=== PATIENT | female | born 1955 | race Caucasian/White ===

== ENCOUNTER → 2016-09-10 | Outpatient (CLI) | payer BC ==
[2016-09-10 11:25] LABS: HEMATOCRIT 38.3 % (36.0-47.0); HEMOGLOBIN 12.9 g/dL (12.0-15.5); HGB HCT DIFFERENCE 0.4; MEAN CORPUSCULAR HEMOGLOBIN 29.4 pg (27.0-33.4); MEAN CORPUSCULAR HGB CONC 33.8 g/dL (32.0-36.0); MEAN CORPUSCULAR VOLUME 87 fl (80-97); RED CELL DISTRIBUTION WIDTH 12.9 % (11.5-14.0); WHITE BLOOD COUNT 3.7 10^3/uL (4.0-10.5)
[2016-09-10 11:52] LABS: ALANINE AMINOTRANSFERASE 33 U/L (9-52); ALBUMIN 4.5 g/dL (3.5-5.0); ALKALINE PHOSPHATASE 79 U/L (38-126); ANION GAP 9 (5-19); ASPARTATE AMINO TRANSFERASE 28 U/L (14-36); BILIRUBIN,TOTAL 0.7 mg/dL (0.2-1.3); BLOOD UREA NITROGEN 16 mg/dL (7-20); CARBON DIOXIDE 33 mmol/L (22-30); CHLORIDE 101 mmol/L (98-107); CHOLESTEROL 214.19 mg/dL (0-200); CREATININE RESULT 0.75 mg/dL (0.52-1.25); Direct HDL 49 mg/dL (>40); GLUCOSE 90 mg/dL (75-110); POTASSIUM 4.4 mmol/L (3.6-5.0); SODIUM 142.8 mmol/L (137-145); TOTAL PROTEIN 7.1 g/dL (6.3-8.2); TRIGLYCERIDES 70 mg/dL (<150)
[2016-09-10 12:05] LABS: DIRECT LDL 150 mg/dL (<100)
[2016-09-11 06:38] LABS: HEPATITIS C VIRUS AB <0.1 s/co ratio (0.0-0.9)
[2016-09-11 10:49] LABS: THYROID PEROXIDASE (TPO) AB <6 IU/mL (0-34); VITAMIN D 25-HYDROXY 56.5 ng/mL (30.0-100.0)
== END ==
LOC: OD 10:26
PROVIDERS: ATTEND Obstetrics & Gynecology Gynecology
DX: E66.9 Obesity, unspecified (principal); E78.5 Hyperlipidemia, unspecified; E03.9 Hypothyroidism, unspecified; Z13.1 Encounter for screening for diabetes mellitus; Z11.59 Encounter for screening for other viral diseases; E55.9 Vitamin D deficiency, unspecified
CPT/HCPCS: 36415; 80053; 80061; 82306; 83036; 84436; 84443; 84479; 85027; 86376; 86803; 86804

== ENCOUNTER → 2017-01-18 | Outpatient (CLI) | payer BC ==
--- NOTE | 2017-01-18 12:20 | RADIOLOGY REPORT (SQ) ---
EXAM DESCRIPTION: CT BONE LENGTH COMPLETED DATE/TIME: 01/18/2017 9:11 am REASON FOR STUDY: CONGENITAL SHORTENING OF UNSPECIFIED LOWER LIMB Q72.819 CONGENITAL SHORTENING OF UNSPECIFIED LOWER LIMB COMPARISON: None. TECHNIQUE: CT scanogram of the bilateral lower extremities is performed including pelvis to ankles. Measurements of femur, tibia, and entire lower extremities performed by the radiologist and saved to PACS. All CT scanners at this facility use dose modulation, iterative reconstruction, and/or weight based d osing when appropriate to reduce radiation dose to as low as reasonably achievable (ALARA). [facility]: Dose Right [facility]: CareDose [facility]: Dose Right [facility]: Teradose 4D [facility]: [employer] RADIATION DOSE: 0.01 mGy. LIMITATIONS: None. FINDINGS: RIGHT: FEMUR: 43.6 cm. TIBIA: 34 cm. TOTAL RIGHT LOWER EXTREMITY LENGTH: 78.2 cm. LEFT: FEMUR: 43.6 cm. TIBIA: 34 cm. TOTAL LEFT LOWER EXTREMITY LENGTH: 78.2 cm. IMPRESSION: LEG LENGTH MEASUREMENTS DETAILED ABOVE. TECHNICAL DOCUMENTATION: JOB ID: [id number] Quality ID # [id number]: Final reports with documentation of one or more dose reduction techniques (e.g., Au tomated exposure control, adjustment of the mA and/or kV according to patient size, use of iterative reconstruction technique) 2010 [employer]- All Rights Reserved
== END ==
LOC: RAD 08:49
PROVIDERS: ATTEND Podiatrist Foot & Ankle Surgery
DX: Q72.819 Congenital shortening of unspecified lower limb (principal)
CPT/HCPCS: 77073

== ENCOUNTER → 2017-05-10 | Outpatient (CLI) | payer BC ==
--- NOTE | 2017-05-10 12:42 | RADIOLOGY REPORT (SQ) ---
EXAM DESCRIPTION: FOOT LEFT COMPLETE COMPLETED DATE/TIME: 05/10/2017 11:56 am REASON FOR STUDY: PAIN IN L FOOT M79.672 PAIN IN LEFT FOOT COMPARISON: None. NUMBER OF VIEWS: Three views. TECHNIQUE: AP, lateral and oblique radiographic images acquired of the left foot. LIMITATIONS: None. FINDINGS: MINERALIZATION: Osteoporotic BONES: [place]'s infraction or avascular necrosis, 3rd metatarsal head with irregularity of the articular surface. No acute fracture. No healing or chronic nonunited fracture is identified. Accessory navicular bone, an anatomic variant. Small plantar calcaneal spur. JOINTS: No effusions. SOFT TISSUES: No soft tissue swelling. No foreign body. OTHER: No other significant finding. 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
== END ==
LOC: RAD 11:41
PROVIDERS: ATTEND Chiropractor
DX: M79.672 Pain in left foot (principal); M87.875 Other osteonecrosis, left foot

== ENCOUNTER → 2017-05-26 | Outpatient (CLI) | payer BC ==
--- NOTE | 2017-05-26 17:12 | RADIOLOGY REPORT (SQ) ---
EXAM DESCRIPTION: CERV SP 4 OR 5 VIEWS COMPLETED DATE/TIME: 05/26/2017 4:39 pm REASON FOR STUDY: LOW BACK PAIN WITH RIGHT SCIATICA (M54.41) M54.41 LUMBAGO WITH SCIATICA, RIGHT SI DE COMPARISON: None. NUMBER OF VIEWS: Five views. TECHNIQUE: AP, lateral, obliques and odontoid radiographic images acquired of the cervical spine. LIMITATIONS: None. FINDINGS: MINERALIZATION: Normal. ALIGNMENT: Anatomic. VERTEBRAE: Vertebral bodies of normal height. DISCS: There is decrease in the C4-C5, C5-C6, and C6-C7 disc space heights with associated anterior o steophytic lipping. FORAMINA: No osteophytes or foraminal narrowing. LATERAL AND POSTERIOR ELEMENTS: Facets, lateral masses and spinous processes without significant find ings. HARDWARE: None in the spine. SOFT TISSUES: No masses or calcifications. Lung apices clear. OTHER: No other significant finding. IMPRESSION: Degenerative changes as noted above TECHNICAL DOCUMENTATION: JOB ID: [id number]- All Rights Reserved
--- NOTE | 2017-05-26 17:14 | RADIOLOGY REPORT (SQ) ---
EXAM DESCRIPTION: L SPINE WHOLE COMPLETED DATE/TIME: 05/26/2017 4:39 pm REASON FOR STUDY: LOW BACK PAIN WITH RIGHT SCIATICA (M54.41) M54.41 LUMBAGO WITH SCIATICA, RIGHT SI DE COMPARISON: None. NUMBER OF VIEWS: Five views including obliques. TECHNIQUE: AP, lateral, oblique, and sacral radiographic images acquired of the lumbar spine. LIMITATIONS: None. FINDINGS: MINERALIZATION: Normal. SEGMENTATION: Normal. No transitional anatomy. ALIGNMENT: Normal. VERTEBRAE: Maintained height. No fracture or worrisome bone lesion. DISCS: Preserved height. No significant osteophytes or end plate irregularity. POSTERIOR ELEMENTS: Pedicles and facets are intact. No pars defect or posterior arch defects. HARDWARE: None in the spine. PARASPINAL SOFT TISSUES: Normal. PELVIS: Intact as visualized. No fractures or worrisome bone lesions. SI joints intact. OTHER: No other significant finding. IMPRESSION: No significant vertebral compression or disc space reduction is seen. Other findings as noted above TECHNICAL DOCUMENTATION: JOB ID: [id number] [employer]- All Rights Reserved
== END ==
LOC: RAD 15:47
PROVIDERS: ATTEND Chiropractor
DX: M54.2 Cervicalgia (principal); M54.41 Lumbago with sciatica, right side
CPT/HCPCS: 72050; 72110

== ENCOUNTER → 2018-01-12 | Outpatient (CLI) | payer BC ==
[2018-01-12 15:04] LABS: ABSOLUTE BASOPHILS # (AUTO) 0.1 10^3/uL (0.0-0.2); ABSOLUTE EOSINOPHILS # (AUTO) 0.1 10^3/uL (0.0-0.6); ABSOLUTE LYMPHOCYTES (AUTO) 1.8 10^3/uL (0.5-4.7); ABSOLUTE MONOCYTES (AUTO) 0.4 10^3/uL (0.1-1.4); ABSOLUTE NEUT (AUTO) 2.9 10^3/uL (1.7-8.2); BASOPHILS % (AUTO) 1.1 % (0-2); EOSINOPHILS % (AUTO) 2.8 % (0-6); HEMATOCRIT 37.8 % (36.0-47.0); HEMOGLOBIN 12.8 g/dL (12.0-15.5); LYMPHOCYTES % (AUTO) 34.8 % (13-45); MEAN CORPUSCULAR HEMOGLOBIN 29.9 pg (27.0-33.4); MEAN CORPUSCULAR HGB CONC 33.9 g/dL (32.0-36.0); MEAN CORPUSCULAR VOLUME 88 fl (80-97); MONOCYTES % (AUTO) 6.8 % (3-13); PLATELET COUNT 292 10^3/uL (150-450); RED BLOOD COUNT 4.29 10^6/uL (3.72-5.28); RED CELL DISTRIBUTION WIDTH 12.5 % (11.5-14.0); SEGMENTED NEUTROPHILS % (AUTO) 54.5 % (42-78); TOTAL CELLS COUNTED % (AUTO) 100 %; WHITE BLOOD COUNT 5.3 10^3/uL (4.0-10.5)
[2018-01-12 15:27] LABS: ALANINE AMINOTRANSFERASE 35 U/L (9-52); ALBUMIN 4.5 g/dL (3.5-5.0); ALKALINE PHOSPHATASE 85 U/L (38-126); ANION GAP 13 (5-19); ASPARTATE AMINO TRANSFERASE 36 U/L (14-36); BILIRUBIN,DIRECT 0.2 mg/dL (0.0-0.4); BILIRUBIN,TOTAL 0.6 mg/dL (0.2-1.3); BLOOD UREA NITROGEN 14 mg/dL (7-20); CARBON DIOXIDE 29 mmol/L (22-30); CHLORIDE 103 mmol/L (98-107); GLUCOSE 81 mg/dL (75-110); POTASSIUM 4.2 mmol/L (3.6-5.0); SODIUM 144.7 mmol/L (137-145); TOTAL PROTEIN 7.3 g/dL (6.3-8.2)
[2018-01-12 15:55] LABS: FREE T3 3.54 pg/mL (2.77-5.27); FREE T4 (FREE THYROXINE) 0.95 ng/dL (0.78-2.19)
[2018-01-12 16:08] LABS: THYROID STIMULATING HORMONE 2.19 uIU/mL (0.47-4.68)
[2018-01-12 16:22] LABS: C-REACTIVE PROTEIN < 5.0 mg/L (<10.0)
[2018-01-13 08:41] LABS: THYROID PEROXIDASE (TPO) AB 14 IU/mL (0-34)
[2018-01-13 08:49] LABS: THYROGLOBULIN AB <1.0 IU/mL (0.0-0.9)
[2018-01-13 11:40] LABS: CHOLESTEROL TOTAL 263 mg/dL (100-199); HDL-C 56 mg/dL (>39); HDL-P (TOTAL) 37.1 umol/L (>=30.5); SMALL LDL-P 992 nmol/L (<=527); TRIGLYCERIDES 89 mg/dL (0-149)
[2018-01-13 13:58] LABS: MAGNESIUM RBC 6.2 mg/dL (4.2-6.8)
[2018-01-13 13:59] LABS: LDL SIZE 21.2 nm (>20.5); LDL-C 189 mg/dL (0-99); LDL-P 2460 nmol/L (<1000); LP-IR SCORE 45 (<=45); SELENIUM WHOLE BLOOD 209 ug/L (100-340)
[2018-01-14 10:37] LABS: M001-IGE PENICILLIUM CHRYSOGEN <0.10 kU/L (Class 0); M002-IGE CLADOSPORIUM HERBARUM <0.10 kU/L (Class 0); M003-IGE ASPERGILLUS FUMIGATUS <0.10 kU/L (Class 0); M004-IGE MUCOR RACEMOSUS <0.10 kU/L (Class 0); M005-IGE CANDIDA ALBICANS <0.10 kU/L (Class 0); M006-IGE ALTERNARIA ALTERNATA <0.10 kU/L (Class 0); M009-IGE FUSARIUM PROLIFERATUM <0.10 kU/L (Class 0); M012-IGE AUREOBASIDI PULLULANS <0.10 kU/L (Class 0); M013-IGE PHOMA BETAE <0.10 kU/L (Class 0); M014-IGE EPICOCCUM PURPURASCEN <0.10 kU/L (Class 0)
[2018-01-14 14:10] LABS: M010-IGE STEMPHYLIUM HERBARUM <0.10 kU/L (Class 0); VITAMIN B1 (THIAMINE) 114.3 nmol/L (66.5-200.0)
[2018-01-15 08:07] LABS: VITAMIN B6 10.6 ug/L (2.0-32.8)
[2018-01-15 12:49] LABS: VITAMIN B2 WHOLE BLOOD 170 ug/L (137-370)
[2018-01-15 16:46] LABS: VITAMIN A 50.9 ug/dL (36.4-108.0)
[2018-01-17 12:57] LABS: REVERSE T3 20.8 ng/dL (9.2-24.1)
== END ==
LOC: OD 12:33
PROVIDERS: ATTEND Student in an Organized Health Care Education/Training Program
DX: R14.0 Abdominal distension (gaseous) (principal); R19.7 Diarrhea, unspecified; R53.83 Other fatigue
CPT/HCPCS: 36415; 80053; 80061; 81291; 82180; 82306; 82607; 83090; 83735; 83918; 84207; 84252; 84255; 84425; 84439; 84443; 84481; 84482; 84590; 84591; 84597; 85025; 86003; 86140; 86340; 86376

== ENCOUNTER → 2018-11-13 | Outpatient (CLI) | payer BC ==
[2018-11-13 13:05] LABS: ABSOLUTE BASOPHILS # (AUTO) 0.1 10^3/uL (0.0-0.2); ABSOLUTE EOSINOPHILS # (AUTO) 0.2 10^3/uL (0.0-0.6); ABSOLUTE LYMPHOCYTES (AUTO) 1.6 10^3/uL (0.5-4.7); ABSOLUTE MONOCYTES (AUTO) 0.4 10^3/uL (0.1-1.4); ABSOLUTE NEUT (AUTO) 2.5 10^3/uL (1.7-8.2); BASOPHILS % (AUTO) 1.2 % (0-2); EOSINOPHILS % (AUTO) 3.3 % (0-6); HEMATOCRIT 35.7 % (36.0-47.0); HEMOGLOBIN 12.2 g/dL (12.0-15.5); LYMPHOCYTES % (AUTO) 33.8 % (13-45); MEAN CORPUSCULAR HEMOGLOBIN 30.2 pg (27.0-33.4); MEAN CORPUSCULAR VOLUME 89 fl (80-97); MONOCYTES % (AUTO) 8.1 % (3-13); PLATELET COUNT 223 10^3/uL (150-450); RED BLOOD COUNT 4.02 10^6/uL (3.72-5.28); SEGMENTED NEUTROPHILS % (AUTO) 53.6 % (42-78); TOTAL CELLS COUNTED % (AUTO) 100 %; WHITE BLOOD COUNT 4.6 10^3/uL (4.0-10.5)
[2018-11-13 13:22] LABS: ALANINE AMINOTRANSFERASE 26 U/L (9-52); ALBUMIN 3.9 g/dL (3.5-5.0); ALKALINE PHOSPHATASE 70 U/L (38-126); ASPARTATE AMINO TRANSFERASE 29 U/L (14-36); BILIRUBIN,DIRECT 0.1 mg/dL (0.0-0.4); BILIRUBIN,TOTAL 0.5 mg/dL (0.2-1.3); BLOOD UREA NITROGEN 17 mg/dL (7-20); CALCIUM 9.8 mg/dL (8.4-10.2); CHOLESTEROL 207.24 mg/dL (0-200); GLUCOSE 80 mg/dL (75-110); POTASSIUM 4.2 mmol/L (3.6-5.0); TOTAL PROTEIN 6.6 g/dL (6.3-8.2); TRIGLYCERIDES 85 mg/dL (<150)
[2018-11-13 13:26] LABS: CARBON DIOXIDE 31 mmol/L (22-30); CHLORIDE 106 mmol/L (98-107); SODIUM 140.4 mmol/L (137-145)
[2018-11-13 13:32] LABS: DIRECT LDL 125 mg/dL (<100)
[2018-11-13 13:34] LABS: ANION GAP 3 (5-19)
== END ==
LOC: OD 10:52
PROVIDERS: ATTEND Student in an Organized Health Care Education/Training Program
DX: R14.0 Abdominal distension (gaseous) (principal); E78.2 Mixed hyperlipidemia
CPT/HCPCS: 36415; 80053; 80061; 85025

== ENCOUNTER → 2019-12-27 | Outpatient (CLI) | payer BC ==
[2019-12-27 10:00] LABS: ALBUMIN 4.2 g/dL (3.5-5.0); ALKALINE PHOSPHATASE 83 U/L (38-126); ASPARTATE AMINO TRANSFERASE 53 U/L (14-36); BILIRUBIN,TOTAL 0.3 mg/dL (0.2-1.3); CHOLESTEROL 254.09 mg/dL (0-200); TOTAL PROTEIN 6.6 g/dL (6.3-8.2); TRIGLYCERIDES 76 mg/dL (<150)
[2019-12-27 10:11] LABS: DIRECT LDL 191 mg/dL (<100)
== END ==
LOC: OD 08:56
PROVIDERS: ATTEND Family Medicine
DX: E78.5 Hyperlipidemia, unspecified (principal)
CPT/HCPCS: 36415; 80061; 80076

== ENCOUNTER → 2020-01-09 | Outpatient (CLI) | payer BC ==
--- NOTE | 2020-01-09 09:48 | RADIOLOGY REPORT (SQ) ---
EXAM DESCRIPTION: U/S ABDOMEN LIMITED W/O DOP IMAGES COMPLETED DATE/TIME: 01/09/2020 9:02 am REASON FOR STUDY: NONSPEC ELEV OF LEVELS OF TRANSAMNS LACTIC ACID DEHYDRGNSE R74.0 NONSPEC ELEV O F LEVELS OF TRANSAMNS LACTIC ACID DEHY COMPARISON: None. TECHNIQUE: Dynamic and static grayscale images acquired of the abdomen and recorded on PACS. Additio nal selected color Doppler and spectral images recorded. LIMITATIONS: None. FINDINGS: PANCREAS: The visualized portions of the pancreas appear normal. LIVER: Normal contour and echotexture. LIVER VASCULATURE: Hepatopetal directional flow in the portal veins. GALLBLADDER: The gallbladder wall measures 1.6 mm in thickness. There is no cholelithiasis, sludge o r pericholecystic fluid. ULTRASOUND-DETECTED LION'S SIGN: Negative. INTRAHEPATIC DUCTS AND COMMON DUCT: The common bile duct measures 4.2 mm in diameter. There is no di latation of the intrahepatic bile ducts. INFERIOR VENA CAVA: Not assessed. AORTA: No aneurysm. RIGHT KIDNEY: The right kidney measures 10.2 cm in length. There is no hydronephrosis. PERITONEAL AND RIGHT PLEURAL SPACE: No ascites or effusions. OTHER: No other findings. IMPRESSION: No abnormality of the right upper quadrant. TECHNICAL DOCUMENTATION: JOB ID: [id number] 2010 [employer]- All Rights Reserved Reading location - IP/workstation name: [email or web address]
== END ==
LOC: RAD 07:21
PROVIDERS: ATTEND Family Medicine
DX: R74.0 Nonspecific elevation of levels of transaminase and lactic acid dehydrogenase [LDH] (principal)
CPT/HCPCS: 76705

== ENCOUNTER → 2020-04-09 | Outpatient (CLI) | payer BC ==
[2020-04-09 10:07] LABS: BLOOD UREA NITROGEN 18 mg/dL (7-20); CALCIUM 9.5 mg/dL (8.4-10.2); CARBON DIOXIDE 29 mmol/L (22-30); CHLORIDE 101 mmol/L (98-107); GLUCOSE 106 mg/dL (75-110); POTASSIUM 4.5 mmol/L (3.6-5.0)
[2020-04-09 10:08] LABS: ALBUMIN 4.2 g/dL (3.5-5.0); ALKALINE PHOSPHATASE 89 U/L (38-126); ANION GAP 10 (5-19); ASPARTATE AMINO TRANSFERASE 48 U/L (14-36); BILIRUBIN,DIRECT 0.2 mg/dL (0.0-0.4); BILIRUBIN,TOTAL 0.6 mg/dL (0.2-1.3); CHOLESTEROL 170.26 mg/dL (0-200); TOTAL PROTEIN 6.6 g/dL (6.3-8.2); TRIGLYCERIDES 55 mg/dL (<150)
[2020-04-09 10:18] LABS: DIRECT LDL 101 mg/dL (<100)
[2020-04-10 10:37] LABS: HEPATITS B SURFACE ANTIGEN Negative (Negative)
[2020-04-10 11:03] LABS: HEPATITIS B SURFACE AB QUAL Reactive (.); HEPATITIS C VIRUS ANTIBODY <0.1 s/co ratio (0.0-0.9)
== END ==
LOC: OD 08:25
PROVIDERS: ATTEND Family Medicine
DX: R74.0 Nonspecific elevation of levels of transaminase and lactic acid dehydrogenase [LDH] (principal); E78.5 Hyperlipidemia, unspecified
CPT/HCPCS: 36415; 80053; 80061; 80074; 82728; 86317; 86706

== ENCOUNTER → 2020-07-01 | Outpatient (CLI) | payer BC ==
[2020-07-01 12:03] VITALS: BP 130/60
--- NOTE | 2020-07-01 12:03 | ER [facility] ASSESSMENT REPORT ---
Intake - In the Last 14 days Have you traveled outside [place]?: No Have you been in close contact with someone CONFIRMED: Yes Worked in Healthcare?: Yes - Symptoms Subjective Fever([place] feverish): Yes Chills: No Muscule Aches: Yes Runny Nose: No Sore Throat: No Cough (New or worsening chronic cough): Yes Shortness of breath: No Nausea or Vomiting: Yes Headache: Yes Abdominal Pain: Yes Diarrhea(3 or more loose stools in last 24 hours): No - Do you have any of the following Chronic lung disease: Asthma or emphysema or COPD: No Cystic Fibrosis: No Diabetes: No High Blood Pressure: No Cardiovascular Disease: No Chronic Kidney Disease: No Chronic Liver Disease: No Chronic blood disorder like Sickle Cell Disease: No Weak immune system due to disease or medication: No Neurologic condition that limits movement: No Developmental delay - Moderate to Severe: No Recent (within past 2 weeks) or current : No Morbid Obesity (>100 pounds over ideal weight): No - Objective Temperature: 98.9 F Pulse Rate: 65 Respiratory Rate: 15 Blood Pressure: 130/60 O2 Sat by Pulse Oximetry: 96 Objective: Given above, testing performed: If Testing Performed: Test Specimen Type Sent to General - General Information source: Patient Notes: Patient presents to the [facility] for screening for the coronavirus. 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 Patient had a fever, body aches, cough and nausea and headache. Patient's had symptoms for the past 5 days. Past Medical History - General Information source: Patient - Social History Smoking Status: Never Smoker Family History: Reviewed & Not Pertinent EENT Medical History: Reports: Eyes - Glaucoma Surgical Hx: Negative Physical Exam - Notes Notes: The patient was evaluated during the global Covid 19 pandemic, and that diagnosis was suspected/considered upon their initial presentation. Their evaluation, treatment and testing was consistent with current guidelines for patients who present with complaints or symptoms that may be related to Covid 19. Full physical exam could not be performed due to covid 19 isolation protocols. Constitutional: Nontoxic appearance, no acute distress Eyes: Nonicteric, extraocular movements intact, sclera clear ENT: Posterior pharynx clear without exudates Cardiovascular: Heart rate and rhythm regular, no JVD Respiratory: Breath sounds clear bilaterally, nonlabored breathing, no use of accessory muscles, no tachypnea Gastrointestinal: Abdomen not distended Muculoskeletal: Moves all extremities well Skin: Normal color Neuro: Awake alert oriented, normal speech Psych: Normal mood and affect Diagnostic Results Laboratory Results: Patient was provided with discharge information including: As a person under investigation for Covid 19, the [facility], division of public health advises you to adhere to the following guidance until your test results are reported to you. If your test result is positive, you will receive additional information from your provider and your local health department at that time. Remain at home until you are cleared by the health provider or public health authorities. Keep a log of visitors to your home, notify any visitors to your home of your isolation status. If you plan to move to a new address or leave the county, notify the local health department in your County. Call your doctor or seek care if you have an urgent medical need. Before seeking medical care, call ahead to get instructions from the provider before arriving at the medical office clinic or hospital. Notify them that you are being tested for the virus that causes Covid 19 so that arrangements can be made, as necessary, to prevent transmission to others in the healthcare setting. Next, notify the local health department in your county. If a medical emergency arises and you need to call 911, inform the first responders that you are being tested for the virus that causes Covid 19. Next, notify the local health department in your county. [facility] Discharge - Discharge Clinical Impression: Encounter for screening laboratory testing for COVID-19 virus Condition: Stable Disposition: Home; Selfcare
[2020-07-01 13:00] LABS: A TYPE INFLUENZA AG NEGATIVE (NEGATIVE); B INFLUENZA AG NEGATIVE (NEGATIVE)
== END ==
LOC: RDC 10:21
PROVIDERS: ATTEND Nurse Practitioner Family
DX: U07.1 COVID-19 (principal); R50.9 Fever, unspecified; M79.10 Myalgia, unspecified site; R05 Cough; R11.0 Nausea; R51.9 Headache, unspecified; R10.9 Unspecified abdominal pain; H40.9 Unspecified glaucoma
CPT/HCPCS: 87070; 87880; 87804; U0003; C9803; 87635; 99201; 99211

== ENCOUNTER → 2020-08-21 | Outpatient (CLI) | payer BC ==
[~2020-08-21] MED LIST: COVID-19 VACCINE (PFIZER)/PF 30 MCG/0.3 ML VIAL IM ONE; EPINEPHRINE INJ/PF 1 MG/1 ML AMPULE IM PRN
--- OUTSIDE RECORDS SUMMARY | 2020-08-21 14:32 | XMS REPORT ---
:1955 [facility] [address] [place] [address] Care Team Providers Name Role Phone Alek Portillo CMA Unavailable Darian Azul DO Unavailable Allergies, Adverse Reactions, Alerts This patient has no known allergies or adverse reactions. Medications Ordered Filled Start Stop Current Ordering Indication Dosage Frequency Signature Comments Components Medication Medication Date Date Medication? Clinician (SIG) Name Name Atorvastati No Alek Dahl 1{Table QD Atorvasta t n Calcium 8 Bandar WILBURN t} in Calcium 20 MG Oral 00:00: 20 MG Oral Tablet 00 Tablet 1 (one) Tablet daily for 90 days Quantity: 90 {Tablet} Refills: 2 Ordered: 0 Alek Portillo CMA Start : 0Active Atorvastati No 1{Table QD Atorvastat n Calcium 8-27 t} in Calcium 20 MG Oral 00:00: 20 MG Oral Tablet 00 Tablet 1 (one) daily (20 MG) Start : 0Active Fluticasone No 2{Suspe QD Fluticason Propionate 727 nsion} e 50 MCG/ACT 00:00: Propionate Nasal 00 50 MCG/ACT Suspension Nasal Suspension 2 (two) daily (50 MCG/ACT) Start : 0Active Montelukast No 1{Table QD Montelukas Sodium 10 5-11 t} t Sodium MG Oral 00:00: 10 MG Oral Tablet 00 Tablet 1 (one) daily (10 MG) Start : 0Active Tessalon No Barbara A 1{Capsu Tessalon Perles 100 4-16 Jorge Alberto le} Perles 100 MG Oral 00:00: DO MG Oral Capsule 00 Capsule 1 (one) Capsule tid prn cough for 10 days Quantity: 30 {Tablet} Refills: 1 Ordered: 0 Jorge Alberto DO, Barbara A Start : 0Active Medrol 4 MG 2020-0 No Barbara A 1{table Medrol 4 Oral Tablet 4-16 Jorge Alberto t} MG Oral Therapy 00:00: DO Tablet Pack 00 Therapy Pack 1 (one) tablet use as directed per instructio ns in pack for 6 days Quantity: 1 {Package} Refills: 0 Ordered: 0 Jorge Alberto DO, Barbara A Start : 0Active guaiFENesin 2019-0 No Barbara A 1{Table guaiFE Nesi ER 600 MG 3-26 Jorge Alberto t} n ER 600 Oral Tablet 00:00: DO MG Oral Extended 00 Tablet Release 12 Extended Hour Release 12 Hour 1 (one) Tablet bid for 10 days Quantity: 20 {Tablet} Refills: 0 Ordered: 0 Jorge Alberto DO, Barbara A Start : 0Active ProAir 2019-0 No Gaston C 0{Puff} ProAir RespiClick 10-24 [facility] RespiClick 108 (90 00:00: 108 (90 Base) 00 Base) MCG/ACT MCG/ACT Inhalation Inhalation Aerosol Aerosol Powder Powder Breath Breath Activated Activated 1-2 Puff q4 - 6 hours prn cough for 30 days Quantity: 1 {Inhalatio n} Refills: 0 Ordered: 0 Alek Portillo CMA C Start : 0Active Promethazin 2019-0 No Barbara A 5{Petrona Promet hazi e-DM 3-26 Jorge Alberto liter} ne-DM 6.25-15 00:00: DO 6.25-15 MG/5ML Oral 00 MG/5ML Syrup Oral Syrup 5 Milliliter qhs prn cough for 10 days Quantity: 120 {Millilite r} Refills: 0 Ordered: 0 Jorge Alberto DO, Barbara A Start : 0Active ProAir 2019-0 No 0{Aero_ ProAir RespiClick 10-24 Pow_Br_ RespiClick 108 (90 00:00: Act} 108 (90 Base) 00 Base) MCG/ACT MCG/ACT Inhalation Inhalation Aerosol Aerosol Powder Powder Breath Breath Activated Activated 1-2 q4 - 6 hours prn cough (108 (90 Base) MCG/ACT) Start : 0Active Fluticasone No Alek Dahl 2{Vance QD Fluticaso n Propionate 10-17 Bandar INTAKE MANAGER } e 50 MCG/ACT 00:00: Propionate Nasal 00 50 MCG/ACT Suspension Nasal Suspension 2 (two) Vance daily for 30 days Quantity: 1 {Bottle} Refills: 1 Ordered: 0 Alek Portillo CMA Start : 0Active Montelukast No Alek Dahl 1{Table QD Monteluka s Sodium 10 10-17 Bandar WILBURN t} t Sodium MG Oral 00:00: 10 MG Oral Tablet 00 Tablet 1 (one) Tablet daily for 30 days Quantity: 30 {Tablet} Refills: 1 Ordered: 0 Alek Portillo CMA Start : 0Active Problems Condition Condition Condition Status Onset Resolution Last Treatin g Comments Name Details Category Date Date Treatment Clinician Date Problem No Known Condition Inactiv 2018-082020-04-21 Bandar, Impairments e 0-28 07:45:47 Alek Dahl 00:00: 00 Back pain Back pain Problem Inactiv rachid Portillo BMI BMI Problem Inactiv Bandar, 32.0-32.9,a 32.0-32.9,a rachid Dahl dult dult (Renamed (Renamed from Body from Body mass index mass index (BMI) of (BMI) of 32.0 to 32.0 to 32.9 in 32.9 in adult) adult) Dysthymia Dysthymia Problem Inactiv rachid Portillo Encounter Encounter Problem Inactiv Bandar, for for rachid Dahl screening screening laboratory laboratory testing for testing for COVID-19 COVID-19 virus virus Fatigue, Fatigue, Problem Inactiv Bandar, unspecified unspecified rachid Dahl type type Heart Heart Problem Inactiv Bandar, murmur murmur rachid Dahl History of History of Problem Inactiv Bandar, vitamin D vitamin D e Gaston C deficiency deficiency Hyperlipide Hyperlipide Problem Inactiv Bandar, raven, mild raven, mild e Alek C Positive Positive Problem Inactiv Bandar, depression depression e Alek Dahl screening screening Small Small Problem Inactiv Bandar, 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 Vitamin B12 Vitamin B12 Problem Inactiv Bandar, deficiency deficiency e Alek C Decreased Decreased Problem Inactiv Bandar, libido libido e Alek C Seasonal Seasonal Problem Inactiv Bandar, allergic allergic e Alek C rhinitis rhinitis due to due to pollen pollen Cough with Cough with Problem Inactiv Bandar, fever fever e Alek C Influenza A Influenza A Problem Inactiv Jorge Alberto , e Barbara A Bronchitis Bronchitis Problem Inactiv Bandar, e Alek C History of History of Problem Inactiv Bandar, influenza influenza e Alek C Elevated Elevated Problem Inactiv Bandar, ALT ALT e Alek C measurement measurement Elevated Elevated Problem Inactiv Jorge Alberto, AST (SGOT) AST (SGOT) e Barbara A Pain in Pain in Problem Inactiv Bandar, female female e Alek C genitalia genitalia on on intercourse intercourse Elevated Elevated Problem Inactiv Jorge Alberto, glucose glucose e Barbara A Procedures Procedure Date / Time Performed Performing Clinician Devic e Colon Cancer Screening 2020-01-23 00:00:00 Alek Portillo Ultrasound 2020-01-09 00:00:00 Alek Portillo Pap Smear 2019-06-18 00:00:00 Alek Portillo Mammogram, Screening 2019-06-14 00:00:00 Alek Portillo No Known Health Maintenance History 2019-05-10 00:00:00 Alek Portillo Offered patient colorectal cancer 2019-05-10 00:00:00 Tonya Portillo screening Colonoscopy, Screening Jorge Alberto, Barbara A Cryo Surgery of the Cervix Alek Portillo Endometrial Ablation Alek Portillo Septoplasty Alek Portillo Results Test Description Test Time Test Comments Text Results Atomic Results Result Comments SARS-CoV-2 RNA Resp Ql ANDREIA+probe 2020-07-03 00:00:00 Test Item Value Reference Range Comments SARS-CoV-2 RNA Resp Ql ANDREIA+probe (test Detected [facility] Case ID: code = [id number]) [id number] SARS-CoV-2 RNA Resp Ql ANDREIA+[id number] 00:00:00 Test Item Value Reference Range Comments SARS-CoV-2 RNA Resp Ql Not detected [facility] Case ANDREIA+probe (test code = ID: [id number]) FLU TEST A & B ([id number])2019-10-22 00:00:00 Test Item Value Reference Range Comments INFCT ANTIGEN, INFLUENZA (test code = Positive type A [id number]) Advance Directives Directive Decision Effective Date Termination Date Comments Advanced Directive Scanned to Yes 2019-05-16 00:00:00 Chart - Effective on 05/16/2019. Expiration date unspecified. Patient chose Declined. Encounters Start End Encounter Admission Attending Care Care Encounter ID Date/Time Date/Time Type Type Clinicians Facility Department 2020-08-08 2020-08-08 No Show Crystal Crystal [id number] 07:38:22 08:20:18 Office [facility] 2020-06-30 2020-06-30 Phone Crystal Crystal [id number] 11:09:52 11:15:30 Encounter [facility] 2020-04-21 2020-04-21 Virtual Crystal Crystal [id number] 07:44:51 08:12:23 Visit [facility] 2020-01-29 2020-01-29 Historical Crystal Crystal [id number] 11:14:10 11:15:33 [facility] 2020-01-10 2020-01-10 Historical Crystal Crystal [id number] 07:14:20 07:15:27 [facility] 2020-01-01 2020-01-01 Virtual Crystal Crystal [id number] 08:10:19 08:46:15 Visit [facility] 2019-11-15 2019-11-15 Virtual Crystal Crystal [id number] 15:28:23 16:06:01 Visit [facility] 2019-10-25 2019-10-25 Historical Crystal Crystal [id number] 10:01:36 10:07:43 [facility] 2019-10-22 2019-10-23 Office Crystal Crystal [id number] 13:31:17 08:45:38 Visit [facility] 2019-10-18 2019-10-18 Office Crystal Crystal [id number] 10:51:11 11:16:26 Visit [facility]- 2019-06-18 2019-06-18 Office Crystal Crystal [id number] 09:46:16 10:30:00 Visit [facility] 2019 2019 Historical Crystal Crystal [id number] 10:01:14 10:01:46 Summary [facility]- 2019-05-28 2019-05-28 Office Crystal Crystal [id number] 10:51:18 11:37:08 Visit [facility]- 2019-05-11 2019-05-11 Outpatient Crystal Crystal [id number] 07:30:55 07:31:29 [facility] Procedure Practice [facility] Order C 2019-05-10 2019-05-10 Office Crystal Crystal [id number] 07:35:21 08:46:57 Visit [facility] Family History Family Member Diagnosis Comments Start Date Stop Date Unspecified Brother 1 Hypertension. Heart Disease. In stable health. Unspecified Brother 2 Hypertension. Heart Disease. In stable health. Unspecified Father . Unspecified Maternal Grandfather . Unspecified Maternal Grandmother . Unspecified Mother . Unspecified Paternal Grandfather . Unspecified Paternal Grandmother . Unspecified Sister 1 Breast cancer. . Payers Payer Name Policy Type Policy Number Effective Date Expiration D ate [employer]BS Blue Options OT Plan of Treatment Planned Activity Planned Date Details Comments Future Scheduled Test [code = ] Future Scheduled Test [code = ] Future Scheduled Test [code = ] Future Scheduled Test [code = ] Future Scheduled Test [code = ] Future Scheduled Test [code = ] Future Scheduled Test [code = ] Future Scheduled Test [code = ] Future Scheduled Test [code = ] Future Scheduled Test [code = ] Future Scheduled Test [code = ] Future Scheduled Test [code = ] Future Scheduled Test [code = ] Future Scheduled Test [code = ] Future Scheduled Test [code = ] Future Scheduled Test [code = ] Future Scheduled Test [code = ] Future Scheduled Test [code = ] Future Scheduled Test [code = ] Future Scheduled Test [code = ] Future Scheduled Test [code = ] Future Scheduled Test [code = ] Future Scheduled Test [code = ] Future Scheduled Test [code = ] Future Scheduled Test [code = ] Future Scheduled Test [code = ] Future Scheduled Test [code = ] Future Scheduled Test [code = ] Future Scheduled Test [code = ] Future Scheduled Test [code = ] Future Scheduled Test [code = ] Future Scheduled Test [code = ] Future Scheduled Test [code = ] Future Scheduled Test [code = ] Future Scheduled Test [code = ] Future Scheduled Test [code = ] Future Scheduled Test [code = ] Future Scheduled Test [code = ] Future Scheduled Test [code = ] Future Scheduled Test [code = ] Future Scheduled Test [code = ] Future Scheduled Test [code = ] Future Scheduled Test [code = ] Future Scheduled Test [code = ] Future Scheduled Test [code = ] Future Scheduled Test [code = ] Future Scheduled Test [code = ] Future Scheduled Test [code = ] Future Scheduled Test [code = ] Future Scheduled Test [code = ] Future Scheduled Test [code = ] Future Scheduled Test [code = ] Future Scheduled Test [code = ] Future Scheduled Test [code = ] Future Scheduled Test [code = ] Future Scheduled Test [code = ] Future Scheduled Test [code = ] Future Scheduled Test [code = ] Future Scheduled Test [code = ] Future Scheduled Test [code = ] Future Scheduled Test [code = ] Future Scheduled Test [code = ] Future Scheduled Test [code = ] Future Scheduled Test [code = ] Future Scheduled Test [code = ] Future Scheduled Test [code = ] Future Scheduled Test [code = ] Future Scheduled Test [code = ] Future Scheduled Test [code = ] Future Scheduled Test [code = ] Future Scheduled Test [code = ] Future Scheduled Test [code = ] Future Scheduled Test [code = ] Future Scheduled Test [code = ] Future Scheduled Test [code = ] Future Scheduled Test [code = ] Future Scheduled Test [code = ] Future Scheduled Test [code = ] Future Scheduled Test [code = ] Future Scheduled Test [code = ] Future Scheduled Test [code = ] Future Scheduled Test [code = ] Future Scheduled Test [code = ] Future Scheduled Test [code = ] Future Scheduled Test [code = ] Future Scheduled Test [code = ] Future Scheduled Test [code = ] Future Scheduled Test [code = ] Future Scheduled Test [code = ] Future Scheduled Test [code = ] Future Scheduled Test [code = ] Future Scheduled Test [code = ] Future Scheduled Test [code = ] Future Scheduled Test [code = ] Future Scheduled Test [code = ] Future Scheduled Test [code = ] Future Scheduled Test [code = ] Future Scheduled Test [code = ] Future Scheduled Test [code = ] Future Scheduled Test [code = ] Future Scheduled Test [code = ] Future Scheduled Test [code = ] Future Scheduled Test [code = ] Future Scheduled Test [code = ] Future Scheduled Test [code = ] Future Scheduled Test [code = ] Future Scheduled Test [code = ] Future Scheduled Test [code = ] Future Scheduled Test [code = ] Future Scheduled Test [code = ] Future Scheduled Test [code = ] Future Scheduled Test [code = ] Social History Social Habit Start Date Stop Date Comments Alcohol Use: Caffeine use: Current Work/Study Status: Drug Use: Exercise History: Marital status: Number of Adult (age 18 or over) Dependents: Number of Child (age 0-17) Dependents: Risk Factors For STD: Tobacco Use: Tobacco/Smoke Exposure: Smoking Status Start Date Stop Date Never smoked tobacco (finding) Vital Signs Vital Name Observation Time Observation Value Comments Weight 2019-10-18 10:56:13 184 [lb_av] Body height 2019-10-18 10:56:13 63.75 [in_us] Body mass index (BMI) 2019-10-18 10:56:13 31.83 kg/m2 [Ratio] Body temperature 2019-10-18 10:56:13 98.5 [degF] Heart Rate 2019-10-18 10:56:13 78 /min Pattern: Reg ular O2 SAT 2019-10-18 10:56:13 98 % Room air Systolic blood pressure 2019-10-18 10:56:13 128 mm[Hg] Asha ent Position: Sitting; Cuff Location: Left A rm; Cuff Size: Stand alden Diastolic blood pressure 2019-10-18 10:56:13 80 mm[Hg] Pat ient Position: Sitting; Cuff Location: Left A rm; Cuff Size: Stand alden Pulse 2019-06-18 09:53:30 74 /min Pattern: Reg ular O2 SAT 2019-06-18 09:53:30 98 % Room air BP Systolic 2019-06-18 09:53:30 114 mm[Hg] Patient Posi tion: Sitting; Cuff Location: Left A rm; Cuff Size: Stand alden BP Diastolic 2019-06-18 09:53:30 70 mm[Hg] Patient Posi tion: Sitting; Cuff Location: Left A rm; Cuff Size: Stand alden Weight 2019-06-18 09:53:30 185 [lb_av] Height 2019-06-18 09:53:30 63.75 [in_us] Body Mass Index 2019-06-18 09:53:30 32.00 kg/m2 Calculated Pulse 2019-05-28 10:54:59 80 /min Pattern: Reg ular BP Systolic 2019-05-28 10:54:59 118 mm[Hg] Patient Posi tion: Sitting; Cuff Location: Left A rm; Cuff Size: Stand alden BP Diastolic 2019-05-28 10:54:59 80 mm[Hg] Patient Posi tion: Sitting; Cuff Location: Left A rm; Cuff Size: Stand alden Weight 2019-05-28 10:54:59 186 [lb_av] Height 2019-05-28 10:54:59 63.75 [in_us] Body Mass Index 2019-05-28 10:54:59 32.18 kg/m2 Calculated Pulse 2019-05-10 07:46:54 69 /min Pattern: Reg ular O2 SAT 2019-05-10 07:46:54 97 % Room air BP Systolic 2019-05-10 07:46:54 120 mm[Hg] Patient Posi tion: Sitting; Cuff Location: Left A rm; Cuff Size: Stand alden BP Diastolic 2019-05-10 07:46:54 70 mm[Hg] Patient Posi tion: Sitting; Cuff Location: Left A rm; Cuff Size: Stand alden Weight 2019-05-10 07:46:54 187 [lb_av] Height 2019-05-10 07:46:54 63.75 [in_us] Body Mass Index 2019-05-10 07:46:54 32.35 kg/m2 Calculated Hospital Discharge Instructions NameDatesDetailsNo Instruction Information AvailableNameDatesDetailsNo Instruction Information AvailableNameDatesDetailsDISCONTINUED - HEPATIC FUNCTION PANEL (28937) Indication: Hyperlipidemia, mild Start: 21-Apr-2020 Instruction Type: Patient EducationNameDatesDetailsNo Instruction Information Available NameDatesDetailsNo Instruction Information AvailableNameDatesDetailsNo Instruction Information AvailableNameDatesDetailsNo Instruction Information AvailableNameDatesDetailsNo Instruction Information AvailableNameDatesDetailsNo Instruction Information AvailableNameDatesDetailsHow to Access Health Information Online using Patient Portal and 3rd [employer] Party Apps Indication: BMI 31.0- 31.9,adult (Renamed from Body mass index (BMI) of 31.0 to 31.9 in adult) Start: 18-Oct-2019 Instruction Type: Patient EducationNameDatesDetailsNo Instruction Information AvailableNameDatesDetailsNo Instruction Information Available NameDatesDetailsHigh Cholesterol Indication: Hyperlipidemia, mild Start: 28-May-2019 Instruction Type: Patient EducationNameDatesDetailsNo Instruction Information AvailableNameDatesDetailsFollow Up for Depression Indication: Positive depression screening Start: 10-May-2019 Instruction Type: Provider Instructions for Treatment
== END ==
LOC: EMPHEALTH 09:27
PROVIDERS: ATTEND Internal Medicine
DX: Z23 Encounter for immunization (principal)
CPT/HCPCS: 91300